=== PATIENT | female | born 1990 | race African-American/Black ===

== ENCOUNTER 2024-10-05 08:47 | Emergency (ER) | payer MEDICAID, OTHER ==
[~2024-10-05] VITALS: Ht 167.6 cm; Wt 65.0 kg
[2024-10-05 08:54] VITALS: O2SAT 99
[2024-10-05] MEDS ORDERED: CEPH500C2 MT (10:51)
[2024-10-05] MEDS ORDERED: SULF1TAB48 MT (10:51)
[2024-10-05] MEDS ORDERED: IBUP-2029 MT (10:51)
[2024-10-05 11:11] VITALS: BP 118/88
[2024-10-05] MEDS: IBUPROFEN 600MG TABLET PO STA (11:11)
[2024-10-05 11:13] VITALS: PULSE 82; RESP 18; TEMP 37.05852; O2SAT 100
== END 2024-10-05 11:15 | disposition home or self-care (01) ==
LOC: ER 08:47
DX: L02.412 Cutaneous abscess of left axilla (principal)
CPT/HCPCS: 81025; 99283